=== PATIENT | female | born 1965 | race Caucasian/White ===

== ENCOUNTER 2025-07-09 07:12 | Outpatient (OUT) | payer BC, SELFPAY ==
--- OUTSIDE RECORDS SUMMARY | 2025-07-09 07:20 | XMS_ITS | Patient Health Record ---
Author Organization [facility] in [place] Address [address] [place] [address] Care Team Providers Care Group Exercise Instructor Name Role Phone Roberto Decker Primary Care Provider Allergies No Known Allergies Reason For Referral No Information Medications Medication SIG (Take, Route, Frequency, Duration) Notes Start Date End Date Status Meloxicam 15 MG 1 tablet Orally Once a day; Dura tion: 60 days 5Active Social History Tobacco Use: Social History Observation Description Date Details (start date - stop date) Former Smoker 02/20/1986 - 02/21/2016 Tobacco Control (Standard) Question Answer Notes Tobacco use: Former smoker When did you start smoking?02/20/1986When did you stop smoking?02/21/2016How long has it been since you last smoked?Greater than 10 yearsAUDIT-C (Standard) Question Answer Notes Did you have a drink containing alcohol in the p ast year? No Ycosff1AbqxxezepoznqrJbnetase Problems Problem Type SNOMED Code ICD Code Onset Dates Problem Status W/U Status Risk Notes Problem Right shoulder pain (4860547099) Right sh oulder pain (M25.511) ActiveconfirmedProblemBicipital tenosynovitis (97941217)Biceps tendonitis, left (M75.22)Activeconfirmed Vital Signs Blood pressure diastolic 74 mm Hg 06/11/2025 Agydre79 in06/11/2025lood pressure eebdueqw573 mm Hg06/11/20250844Cibhrg325.2 lbs 06/11/2025BMI24.23 kg/m206/11/2025 Encounters Encounter Location Date Provider Diagnosis [facility] [address] [place] [address] 02/19/2025 Roberto Hoy Biceps tendonitis, left M75.22 [facility] [address] [place] [address] 06/11/2025 Roberto Hoy Right shoulder pain M25.511 and Well adult Z00.00 [facility] [address] [place] [address] 04/01/2025 Roberto Hoy Biceps tendonitis, left M75.22 Assessments Encounter Date Diagnosis (ICD Code) Assessment Notes Treatment Notes Treatment Clinical Notes Section Notes 02/19/2025 Biceps tendonitis, left (ICD-10 - M75.22) 06/11/2025Right shoulder pain (ICD-10 - M25.511)R shoulder - repeat injections 06/11/2025Well adult (ICD-10 - Z00.00)04/01/2025iceps tendonitis, left (ICD-10 - M75.22) Plan Of Treatment Pending Test Test Name Order Date HEMOGLOBIN A1C (GLYCO) 06/11/2025 IRON, TOTAL 06/11/2025 LIPID PANEL (CHOL/TRIG/HDL/LDL) 06/11/20 25 VITAMIN D, 25 LEVEL (TOTAL) 06/11/2025 STOOL OCCULT BLOOD 06/11/2025 THYROID PANEL (T4/TSH/FREE T3) 5 MM screening mammo BI 06/11/2025 CMP (COMP MET LIPSCOMB) w/eGFR CKD-EPI 2024 CBC WITH DIFF 06/11/2025 Insurance Providers Payer Name Payer Address Payer Phone Subscriber Number Group Number Insured Name Patient Relationship to Insured Coverage Start Date Coverage End Date [employer] [address] [place] [address] [id number] Patricia Jessica - patient is the spouse of the insured Medications Administered Medication Instructions Date of Administration Dosage Notes Ketorolac Tromethamine mgTriamcinolone 40 mg/ml mgTriamcinolone 40 mg/ml mg
[2025-07-09 07:54] LABS: Hematocrit 42.0 % (36.0-48.0); Hemoglobin 13.3 g/dL (12.0-16.0); Immature Granulocytes Abs Auto 0.01 10^3/uL (0.00-0.03); Immature Granulocytes Pct Auto 0.2 % (0.0-0.5); Lymphocytes Absolute Auto 1.8 10^3/uL (1.2-3.8); Mean Corpuscular HGB Conc 31.7 g/dL (29.9-35.2); Mean Corpuscular Hemoglobin 28.1 pg (26.7-34.0); Mean Corpuscular Volume 88.8 fL (81.0-99.0); Platelet Count 376 10^3/uL (150-450); Red Blood Count 4.73 10^6/uL (4.20-5.40); White Blood Count 5.5 10^3/uL (4.0-11.0)
[2025-07-09 08:30] LABS: Alanine Aminotransferase 34 U/L (14-59); Albumin Globulin Ratio 1.0; Albumin Level 3.7 g/dL (3.4-5.0); Alkaline Phosphatase 67 U/L (46-116); Anion Gap 10.7; Aspartate Amino Transferase 22 U/L (15-37); Blood Urea Nitrogen 20.0 mg/dL (7.0-18.0); Calcium 9.4 mg/dL (8.5-10.1); Carbon Dioxide 30.5 mmol/L (21.0-32.0); Chloride 107 mmol/L (98-107); Cholesterol 272 mg/dL (<=200); Estimated GFR (African America >60 (>=60 mL/min/1.73m^2); Estimated GFR (Non-African Ame >60 (>=60 mL/min/1.73m^2); Free T3 2.26 pg/mL (2.18-3.98); Globulin 3.6 g/dL; Glucose 99 mg/dL (74-106); HDL Cholesterol 71 mg/dL (40-60); Potassium 4.2 mmol/L (3.5-5.1); Sodium 144 mmol/L (136-145); Thyroid Stimulating Hormone 4.303 uIU/mL (0.358-3.740); Total Protein 7.3 g/dL (6.4-8.2); Triglycerides 88 mg/dL (<=150); VLDL CHOLESTEROL 17.6 mg/dL
[2025-07-09 08:51] LABS: Iron 67.0 ug/dL (50.0-170.0)
== END 2025-07-09 07:13 | disposition home or self-care (01) ==
LOC: LAB 07:17
PROVIDERS: PCP Family Medicine; Visit Provider Family Medicine
DX: Z00.00 Encounter for general adult medical examination without abnormal findings (principal)
CPT/HCPCS: 36415; 80053; 80061; 82306; 83036; 83540; 84436; 84443; 84481; 85025